=== PATIENT | female | born 1970 | race Caucasian/White ===

== ENCOUNTER 2021-04-02 10:38 | Outpatient (CLI) | payer OTHER | END 2021-04-02 10:41 | disposition home or self-care (01) | LOC: RAD 10:38 | PROVIDERS: ATTEND Internal Medicine Geriatric Medicine | DX: N20.0 Calculus of kidney (principal) ==

== ENCOUNTER 2021-05-30 14:57 | Outpatient (CLI) | payer OTHER | END 2021-05-30 15:21 | disposition home or self-care (01) | LOC: TOM 14:57 | PROVIDERS: ATTEND Urology | DX: N20.0 Calculus of kidney (principal) ==

== ENCOUNTER 2021-10-09 14:06 | Outpatient (CLI) | payer OTHER | END 2021-10-09 14:16 | disposition home or self-care (01) | LOC: SONOGRAMA 14:06 | PROVIDERS: ATTEND Obstetrics & Gynecology | DX: E04.2 Nontoxic multinodular goiter (principal); E06.5 Other chronic thyroiditis ==

== ENCOUNTER 2022-09-09 13:20 | Outpatient (CLI) | payer OTHER | END 2022-09-09 13:21 | disposition home or self-care (01) | LOC: NUCLEAR 13:20 | PROVIDERS: ATTEND Obstetrics & Gynecology | DX: M81.0 Age-related osteoporosis without current pathological fracture (principal) ==

== ENCOUNTER 2022-09-11 10:04 | Outpatient (CLI) | payer OTHER | END 2022-09-11 10:16 | disposition home or self-care (01) | LOC: TOM 10:04 | PROVIDERS: ATTEND Internal Medicine Gastroenterology | DX: R10.9 Unspecified abdominal pain (principal) ==

== ENCOUNTER 2024-03-22 09:52 | Outpatient (CLI) | payer OTHER | END 2024-03-22 10:07 | disposition home or self-care (01) | LOC: SONOGRAMA 09:52 | PROVIDERS: ATTEND Internal Medicine | DX: E04.2 Nontoxic multinodular goiter (principal) ==